=== PATIENT | male | born 1995 | race Caucasian/White ===

== ENCOUNTER 2022-12-31 22:40 | Emergency (ER) | payer SELFPAY ==
[2022-12-31 22:48] VITALS: BP 143/94; PULSE 130; RESP 20; TEMP 37.4; O2SAT 100; BMI 36.6
[2022-12-31 22:55] VITALS: PULSE 128; RESP 15; O2SAT 100
--- NOTE | 2022-12-31 22:58 | DI.RAD.S_ITS ---
PROCEDURE: XR CHEST 1V INDICATIONS: Chest pain TECHNIQUE: One view of the chest was acquired. COMPARISON: None. FINDINGS: Surgical changes and devices: None. Lungs and pleura: Lungs are clear. No pleural effusions or pneumothorax. Mediastinum: Mediastinal contours appear normal. Heart size is normal. Bones and chest wall: No suspicious bony lesions. Overlying soft tissues appear unremarkable. IMPRESSION: 1. No acute cardiopulmonary disease. Dictated by: Armaan Verdugo M.D. on 01/01/2023 at 0:45 Approved by: Armaan Verdugo M.D. on 01/01/2023 at 0:46
[2022-12-31 23:00] VITALS: PULSE 121; RESP 17; O2SAT 98
--- NOTE | 2022-12-31 23:07 | ED_ITS ---
HPI - General Adult General Chief complaint: Chest Pain Stated complaint: Heart issues, thumping, dizzy Time Seen by Provider: 12/31/22 22:48 Source: patient Mode of arrival: Ambulatory Limitations: no limitations History of Present Illness HPI narrative: Patient is a 27-year-old male who is here for evaluation of multiple issues to include palpitations, feel like his heart is beating fast, dizziness, lower extremity swelling also having some hot and cold episodes. He states that his symptoms started a couple days ago. Lasted a very short period of time but then improved. At then occurred again later today. He also states that he felt like he was going to pass out. He tried some breathing techniques without any improvement. Denied any fevers. No prior history of this. States that he does not have a history of anxiety. Related Data Previous Rx's Medication Instructions Recorded propranolol 10 mg tablet 10 mg PO BID PRN 01/01/23 Palpitations/tachycardia #30 tabs Allergies Allergy/AdvReac Type Severity Reaction Status Date / Time No Known Drug Allergies Allergy Verified 01/01/23 00:00 Review of Systems Constitutional Constitutional: Reports system reviewed and no additional complaints, except as documented Cardiovascular Cardiovascular: Reports system reviewed and no additional complaints, except as documented Respiratory Respiratory: Reports system reviewed and no additional complaints, except as documented Gastrointestinal Gastrointestinal: Reports system reviewed and no additional complaints, except as documented Musculoskeletal Musculoskeletal: Reports system reviewed and no additional complaints, except as documented Integumentary/Breasts Skin/Breast: Reports system reviewed and no additional complaints, except as documented Neurologic Neurologic: Reports system reviewed and no additional complaints, except as documented Hematologic/Lymphatic On Anticoagulants: No Patient History Social History Smoking Status: Never smoker Exam Initial Vital Signs Initial Vital Signs: Vital Signs Temperature 99.3 F 12/31/22 22:48 Pulse Rate 130 H 12/31/22 22:48 Respiratory Rate 20 12/31/22 22:48 Blood Pressure 143/94 H 12/31/22 22:48 Pulse Oximetry 100 12/31/22 22:48 Oxygen Delivery Method Room Air 12/31/22 22:48 Const General: cooperative, comfortable and No ill appearing HENMT Head: normal to inspection and normocephalic Resp Effort & Inspection: normal respiratory effort Auscultation: clear to auscultation bilaterally Cardio Rate: tachycardic Rhythm: regular rhythm GI Inspection: non-distended Palpation: soft Skin General: no rashes or lesions noted Neuro General: patient alert, patient awake, patient oriented x3 and moves all ex tremities Speech: speech normal Extrem General: normal to inspection and capillary refill normal Course Orders Ordered: ED Orders 12/31/22 22:48 EKG-12 Lead Stat 12/31/22 22:58 XR chest 1V Stat 12/31/22 23:05 Complete Blood Count AUTO DIFF Stat Comprehensive Metabolic Panel Stat Lipase Stat Thyroid Stimulating Hormone Stat Discontinued Medications Lorazepam (Lorazepam 2 Mg/Ml Inj) 0.5 mg IV NOW ONE Stop: 12/31/22 23:10 Last Admin: 12/31/22 23:31 Dose: 0.5 mg Documented By: BS Propranolol HCl (Propranolol 10 Mg Tablet) 10 mg PO NOW ONE Stop: 12/31/22 23:51 Last Admin: 01/01/23 00:08 Dose: 10 mg Documented By: OW Vital Signs Vital signs: Vital Signs - 8 hr 12/31/22 22:48 12/31/22 22:55 12/31/22 23:00 Temperature 99.3 F Pulse Rate 130 H 128 H 121 H Respiratory Rate 20 15 17 Blood Pressure 143/94 H Pulse Oximetry 100 100 98 Oxygen Delivery Method Room Air Room Air 12/31/22 23:30 01/01/23 00:00 Temperature Pulse Rate 111 H 115 H Respiratory Rate 11 L 17 Blood Pressure 144/89 H 144/92 H Pulse Oximetry 96 94 Oxygen Delivery Method Room Air Medical Decision Making Lab Data Lab results reviewed: Yes I reviewed the patient's lab results. 12/31/22 23:05 12/31/22 23:05 Labs: Lab Results 12/31/22 12/31/22 12/31/22 Range/Units 23:05 23:05 23:05 WBC 6.3 (4.5-11.0) X10^3/uL RBC 5.71 (4.5-5.9) X10^6/uL Hgb 17.1 (13.5-17.5) g/dL Hct 49.1 (41-53) % MCV 86.0 (80-100) fL MCH 30.0 (26-34) PG MCHC 34.9 (30-36) % RDW 13.5 (11.6-14.8) % Plt Count 244 (150-400) X10^3/uL Neut % (Auto) 67.6 (50-75) % Lymph % (Auto) 19.6 L (25-40) % Baxter % (Auto) 10.8 (3-14) % Eos % (Auto) 1.4 L (2-4) % Baso % (Auto) 0.6 (0-2) % Neut # (Auto) 4300 (4154-5049) /uL Lymph # (Auto) 1200 (8030-5449) /uL Baxter # (Auto) 700 (0-900) /uL Eos # (Auto) 100 (0-450) /uL Baso # (Auto) 0 (0-100) /uL Sodium 139 (137-145) mmol/L Potassium 3.7 (3.4-5.1) mmol/L Chloride 102 (98-107) mmol/L Carbon Dioxide 24 (22-32) mmol/L BUN 10 (9-20) mg/dL Creatinine 0.98 (0.66-1.25) mg/dL Estimated GFR > 60 (>60) mL/min BUN/Creatinine Ratio 10.2 (6-22) Glucose 112 H (70-100) mg/dL Calcium 9.3 (8.4-10.2) mg/dL Total Bilirubin 1.1 (0.2-1.3) mg/dL AST 24 (17-59) IU/L ALT 29 (<50) IU/L Alkaline Phosphatase 70 (38-126) U/L Total Protein 8.6 H (6.3-8.2) g/dL Albumin 4.7 (3.5-5.0) g/dL Globulin 3.9 (1.7-4.1) g/dL Albumin/Globulin Ratio 1.2 (1.0-2.8) Lipase 30 (23-300) U/L TSH 1.84 (0.47-4.68) uIU/mL Imaging Data Chest x-ray: My Impression: No acute pathology ECG Data Attestation: I personally reviewed and interpreted this ECG as follows: Interpretation: Sinus tachycardia Ventricular rate 118 Normal QRS Normal QTC No ST T wave changes MDM Narrative Medical decision making narrative: Patient obviously had an anxiety component to his presentation today. His heart rate improved with both Ativan and also propranolol. It was not below 100 beats per minute but it did improve. His blood pressure is unremarkable. No fevers. Blood work is unremarkable. Patient clinically does not have pneumonia. My read of the chest x-ray is unremarkable. Will discharge patient home with a prescription for propranolol. He was advised that he needs to make contact with a primary doctors he will probably need a referral for a Holter monitor. He was given return precautions. He expressed understanding and agreement. Discharge Plan Departure Patient Disposition: Home Clinical Impression: Sinus tachycardia Instructions: DI for Tachycardia Activity Restrictions/Additional Instructions: A prescription for a as needed medicine called [facility] This medication is for you to take if you start to feel like your heart is beating fast. You do need a follow-up with the primary care doctor is your most likely going to need a Holter monitor. Return to the emergency department for new or worsening symptoms. Prescriptions: New propranolol 10 mg tablet 10 mg PO BID PRN (Reason: Palpitations/tachycardia) Qty: 30 0RF Stand Alone Forms: Patient Portal/API
[2022-12-31 23:18] LABS: Add Manual Diff / Slide Review NO; Basophils Absolute Auto 0 /uL (0-100); Basophils Percent Auto 0.6 % (0-2); Eosinophils Absolute Auto 100 /uL (0-450); Eosinophils Percent Auto 1.4 % (2-4); Hematocrit 49.1 % (41-53); Hemoglobin 17.1 g/dL (13.5-17.5); Lymphocytes Absolute Auto 1200 /uL (1100-4500); Lymphocytes Percent Auto 19.6 % (25-40); Mean Corpuscular HGB Conc 34.9 % (30-36); Monocytes Absolute Auto 700 /uL (0-900); Monocytes Percent Auto 10.8 % (3-14); Neutrophils Absolute Auto 4300 /uL (1500-7000); Neutrophils Percent Auto 67.6 % (50-75); Platelet Count 244 X10^3/uL (150-400); Red Blood Cell Count 5.71 X10^6/uL (4.5-5.9); Red Cell Distribution Width 13.5 % (11.6-14.8); White Blood Cell Count 6.3 X10^3/uL (4.5-11.0)
[2022-12-31 23:28] LABS: Alanine Aminotransferase 29 IU/L (<50); Albumin 4.7 g/dL (3.5-5.0); Albumin Globulin Ratio 1.2 (1.0-2.8); Alkaline Phosphatase 70 U/L (38-126); Aspartate Aminotransferase 24 IU/L (17-59); BUN Creatinine Ratio 10.2 (6-22); Bilirubin Total 1.1 mg/dL (0.2-1.3); Blood Urea Nitrogen 10 mg/dL (9-20); Calcium 9.3 mg/dL (8.4-10.2); Carbon Dioxide 24 mmol/L (22-32); Chloride 102 mmol/L (98-107); Estimated Glomerular Filt Rate > 60 mL/min (>60); Globulin 3.9 g/dL (1.7-4.1); Glucose 112 mg/dL (70-100); HEMOLYSIS < 15 (0-50); Lipase 30 U/L (23-300); Potassium 3.7 mmol/L (3.4-5.1); Sodium 139 mmol/L (137-145); Total Protein 8.6 g/dL (6.3-8.2)
[2022-12-31 23:30] VITALS: BP 144/89; PULSE 111; RESP 11; O2SAT 96
[2022-12-31] MEDS: LORazepam 2 MG/ML INJ 0.5 MG IV (23:31)
[2023-01-01] VITALS: BP 144/92; PULSE 115; RESP 17; O2SAT 94
[2023-01-01] MEDS: PROPRANOLOL 10 MG TABLET PO (00:08)
[2023-01-01 00:22] LABS: Thyroid Stimulating Hormone 1.84 uIU/mL (0.47-4.68)
[2023-01-01 00:30] VITALS: BP 141/93; PULSE 111; RESP 18; O2SAT 94
[2023-01-01 01:00] VITALS: BP 138/91; PULSE 106; RESP 13; O2SAT 94
== END 2023-01-01 01:26 | disposition home or self-care (01) ==
PROVIDERS: Emergency Provider Emergency Medicine
DX: R00.0 Tachycardia, unspecified (principal)
CPT/HCPCS: 36415; 71045; 80053; 83690; 84443; 85025; 93005; 96374; 99284; J2060